=== PATIENT | female | born 1975 | race Caucasian/White ===

== ENCOUNTER → 2022-11-13 12:54 | Outpatient (CLI) | payer BC, SELFPAY ==
--- NOTE | 2022-11-13 13:00 | XR_ITS ---
FINAL REPORT CLINICAL HISTORY: Chest congestion, cough COMPARISON: None FINDINGS: PA and lateral views of the chest are obtained. There is no prior exam for comparison. The cardiac and mediastinal silhouettes are within normal limits. The lungs are clear. There is no pleural effusion, pneumothorax, or acute osseous abnormality. IMPRESSION: No radiographic evidence of acute cardiac or pulmonary disease. Reviewed, Interpreted and Dictated by Alta Reynolds MD Transcribed by Yudy Puri Authenticated and [facility]
[2022-11-13 14:24] LABS: Adenovirus,PCR Not Detected (NotDetected); Bordetella Pertussis Not Detected (NotDetected); Chlamydophila Pneumoniae, PCR Not Detected (NotDetected); Coronavirus 19, PCR Not Detected (NotDetected); Coronavirus 229E Not Detected (NotDetected); Coronavirus NL63 Not Detected (NotDetected); Coronavirus OC43 Not Detected (NotDetected); Coronovirus HKU1,PCR Not Detected (NotDetected); Human Metapneumovirus Not Detected (NotDetected); Influenza A, PCR Not Detected (NotDetected); Influenza AH1, 2009 Not Detected (NotDetected); Influenza AH1, PCR Not Detected (NotDetected); Influenza AH3,PCR Not Detected (NotDetected); Influenza B, PCR Not Detected (NotDetected); Mycoplasma Pneumoniae, PCR Not Detected (NotDetected); Parainfluenza 1, PCR Not Detected (NotDetected); Parainfluenza 2, PCR Not Detected (NotDetected); Parainfluenza 3, PCR Not Detected (NotDetected); Parainfluenza 4, PCR Not Detected (NotDetected); Respiratory Syncytial Virus Not Detected (NotDetected); Rhinovirus/Enterovirus Not Detected (NotDetected)
== END ==
PROVIDERS: PCP Internal Medicine; Visit Provider Internal Medicine
DX: J22 Unspecified acute lower respiratory infection (principal); R51.9 Headache, unspecified; R09.82 Postnasal drip; R05.9 Cough, unspecified; R19.7 Diarrhea, unspecified
CPT/HCPCS: 71046; 87581; 87632; 87798

== ENCOUNTER → 2022-12-05 16:01 | Outpatient (CLI) | payer BC, SELFPAY | PROVIDERS: PCP Internal Medicine; Visit Provider Internal Medicine | DX: R05.9 Cough, unspecified (principal); B96.89 Other specified bacterial agents as the cause of diseases classified elsewhere | CPT/HCPCS: 87070; 87205 ==

== ENCOUNTER 2023-04-25 09:30 | Outpatient (CLI) | payer MEDICARE, SELFPAY ==
--- NOTE | 2023-04-25 09:34 | XR_ITS ---
FINAL REPORT CLINICAL HISTORY: tb screening COMPARISON: 11/13/2022 FINDINGS: Two views of the chest were obtained. The heart size and pulmonary vascularity are within normal limits. The mediastinum is normal. No acute pulmonary abnormality is identified. There are several small calcified granulomas in the lungs. There is no evidence of active mycobacterial/fungal disease. There is no pneumothorax. The bony thorax is intact. IMPRESSION: No active cardiopulmonary disease. No evidence of active mycobacterial/fungal disease. Reviewed, Interpreted and Dictated by Anant Sy III, MD Transcribed by Concepcion Dutton Authenticated and . [facility]
[2023-04-25 10:14] LABS: Basophils # 0.1 K/mm3 (0-0.2); Eosinophils # 0.2 K/mm3 (0.0-0.4); Eosinophils % 2.2 % (0.1-12.0); Hematocrit 44.8 % (37.0-47.0); Hemoglobin 13.9 g/dL (12.2-16.2); Lymphocytes # 1.1 K/mm3 (0.7-4.5); Lymphocytes % 16.3 % (10-50); Mean Corpuscular Hemoglobin 31.9 pg (27.0-31.2); Mean Corpuscular Volume 102.9 fl (81-99); Mean Platelet Volume 7.1 fl (7.4-10.4); Monocytes # 0.4 K/mm3 (0.1-1.0); Monocytes % 5.3 % (1.7-9.3); Neutrophils # 5.1 K/mm3 (1.8-7.8); Neutrophils % 75.2 % (37.0-80.0); Platelet Count 284 K/mm3 (142-424); Red Blood Count 4.35 M/mm3 (4.20-5.40); Red Cell Distribution Width 13.8 % (11.5-17.5); White Blood Count 6.8 K/mm3 (4.8-10.8)
[2023-04-25 11:02] LABS: Alanine Aminotransferase 30 U/L (12-78); Albumin Level 4.6 g/dl (3.5-5.0); Albumin/Globulin Ratio 1.9 (1.1-1.8); Alkaline Phosphatase 110 U/L (38-126); Anion Gap 12.2 mEq/L (5-15); Aspartate Amino Transferase 28 U/L (14-36); Bilirubin,Total 0.4 mg/dl (0.2-1.3); Blood Urea Nitrogen 21 mg/dl (7-17); Calcium 9.3 mg/dl (8.4-10.2); Carbon Dioxide 25 mmol/L (22.0-30.0); Chloride 106 mmol/L (98-107); Chol/HDL Ratio 3.3 (1-3.5); Cholesterol 223 mg/dl (140-200); Estimated Glomerular Filt Rate 48 ml/min (>60); GFR (African American) 58 ML/MIN (>60); Globulin 2.4 g/dL (1.3-3.2); Glucose 93 mg/dl (74-100); HDL Cholesterol 67 mg/dl (40-60); Potassium 4.2 mmoL/L (3.5-5.1); Sodium 139 mmol/L (136-145); Triglycerides 76 mg/dl (30-150); VLDL Cholesterol 15 mg/dL (0-40)
[2023-04-25 11:13] LABS: Direct LDL Cholesterol 113.08 mg/dL (100-129)
[2023-04-25 11:19] LABS: Free T4 (Free Thyroxine) 1.13 ng/dl (0.78-2.19)
[2023-04-25 11:32] LABS: Thyroid Stimulating Hormone 6.18 uIU/mL (0.465-4.68)
[2023-04-26 15:51] LABS: Measles Antibodies, IgG >300.0 AU/mL (Immune >16.4); Mumps Abs, IgG 58.6 AU/mL (Immune >10.9); Rubella Antibodies, IgG 6.05 index (Immune >0.99)
[2023-04-28 12:05] LABS: Vitamin B12 813 pg/mL (239-931)
[2023-04-28 12:06] LABS: Folate 5.54 ng/mL
== END 2023-04-25 23:59 ==
LOC: LAB 09:32
PROVIDERS: PCP Internal Medicine; Visit Provider Internal Medicine
DX: Z11.1 Encounter for screening for respiratory tuberculosis; E03.9 Hypothyroidism, unspecified; Z79.899 Other long term (current) drug therapy; E66.9 Obesity, unspecified; Z02.1 Encounter for pre-employment examination; Z68.32 Body mass index [BMI] 32.0-32.9, adult
CPT/HCPCS: 36415; 71046; 80053; 80061; 82607; 82746; 84439; 84443; 85025; 86735; 86762; 86765

== ENCOUNTER 2023-05-05 17:04 | Outpatient (CLI) | payer MEDICARE, SELFPAY ==
[2023-05-05 17:33] LABS: Chloride 105 mmol/L (98-107); Potassium 4.2 mmoL/L (3.5-5.1); Sodium 140 mmol/L (136-145)
[2023-05-05 17:36] LABS: Alanine Aminotransferase 31 U/L (12-78); Albumin/Globulin Ratio 1.6 (1.1-1.8); Alkaline Phosphatase 126 U/L (38-126); Anion Gap 14.2 mEq/L (5-15); Aspartate Amino Transferase 33 U/L (14-36); Bilirubin,Total 0.5 mg/dl (0.2-1.3); Blood Urea Nitrogen 13 mg/dl (7-17); Carbon Dioxide 25 mmol/L (22.0-30.0); Estimated Glomerular Filt Rate 59 ml/min (>60); GFR (African American) 71 ML/MIN (>60); Globulin 3.2 g/dL (1.3-3.2); Glucose 91 mg/dl (74-100); Phosphorous 4.4 mg/dl (2.5-4.5); Total Protein,Serum 8.2 g/dl (6.3-8.2)
[2023-05-05 17:37] LABS: Magnesium 2.2 mg/dl (1.6-2.3)
== END 2023-05-05 23:59 ==
PROVIDERS: PCP Nurse Practitioner Family; Visit Provider Nurse Practitioner Family
DX: N17.9 Acute kidney failure, unspecified (principal); M79.18 Myalgia, other site
CPT/HCPCS: 80053; 83735; 84100

== ENCOUNTER 2023-08-01 15:19 | Emergency (ER) | payer MEDICARE, SELFPAY ==
--- NOTE | 2023-08-01 15:27 | ED_ITS ---
Discharge Plan Disposition Patient Disposition: Home, Self-Care Condition: Good Prescriptions Prescriptions: No Action levothyroxine 137 mcg tablet 137 mcg PO DAILY Qty: 90 3RF buspirone 7.5 mg tablet 7.5 mg PO BID Qty: 180 3RF desvenlafaxine succinate [Pristiq] 50 mg tablet extended release 24 hr 50 mg PO DAILY Qty: 90 3RF trazodone 50 mg tablet 100 mg PO DAILY Patient Comments: TAKE 2 TABLETS BY MOUTH AT BEDTIME NIGHTLY citalopram 20 mg tablet 20 mg PO DAILY Patient Comments: TAKE 1 TABLET BY MOUTH ONCE DAILY duloxetine 60 mg capsule,delayed release(DR/EC) 60 mg PO DAILY Patient Comments: TAKE 1 CAPSULE BY MOUTH ONCE DAILY Referrals Follow up/Referrals: Nettie Peña APRN [Primary Care Provider] - See instructions Activity Restrictions/Add. Instructions Additional Instructions/Restrictions: Watch for signs of infection Keep clean and dry Steri strips will fall off on their own Sutures need to be removed in 10 days (here or with Nettie) Clinical Impressions Clinical Impression: Laceration of left lower extremity Instructions Patient Instructions: DI for Laceration Repair -- Simple Discharge ED Provider: Tram Wilhelm 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 Onset (ago): hour(s) (1) Location: left and lower extremity Relieving factors: none Exacerbating factors: none Treatments prior to arrival: none Related Data Home Medications Medication Instructions Recorded Confirmed citalopram 20 mg tablet 20 mg PO DAILY 08/01/23 08/01/23 duloxetine 60 mg capsule,delayed 60 mg PO DAILY 08/01/23 08/01/23 release trazodone 50 mg tablet 100 mg PO DAILY 08/01/23 08/01/23 Previous Rx's Medication Instructions Recorded levothyroxine 137 mcg tablet 137 mcg PO DAILY #90 tabs 05/05/23 buspirone 7.5 mg tablet 7.5 mg PO BID #180 tabs 06/23/23 desvenlafaxine succinate 50 mg 50 mg PO DAILY #90 tabs 07/30/23 tablet,extended release 24 hr (Pristiq) Allergies Allergy/AdvReac Type Severity Reaction Status Date / Time midazolam Allergy Verified 08/01/23 16:01 [facility] Disclaimer: The information contained in this section may have been updated after the patient was seen, as this information can be updated by other users. Medical History Establishing care with new doctor, encounter for Tuberculosis screening Pre-employment examination Lower resp. tract infection Respiratory tract infection Hypothyroidism affecting , antepartum Meniscus, lateral, bucket handle tear, old Insomnia Osteoarthritis Anxiety Depression Post traumatic stress disorder (PTSD) Hypothyroidism Surgical History History of toe surgery R & L great toe fusions History of left knee surgery History of right knee joint replacement History of hysterectomy Family History Family/Other Cancer Diabetes Stroke Heart attack Social History Smoking Status: Current every day smoker alcohol intake: never substance use type: denies use current occupational status: employed Travel in the last 8 weeks: None ROS Obtained: Yes All systems reviewed & no additional complaints except as documented Musculoskeletal Musculoskeletal: Reports as per HPI Integumentary/Breasts Skin/Breast: Reports as per HPI Physical Exam General General appearance: alert and in no apparent distress Respiratory Respiratory exam: Present normal lung sounds bilaterally; Absent respiratory distress Cardiovascular Cardiovascular exam: Present regular rate and normal rhythm; Absent JVD Extremities Exam Extremities exam: Present normal inspection, full ROM and normal capillary refill; Absent calf tenderness Expanded Lower Extremity Exam Left: Leg image: 2 1. laceration Lower leg exam: Present laceration Neurological Exam Neurological exam: Present alert and oriented X3 Psychiatric Psychiatric exam: Present normal affect and normal mood Skin Skin exam: Present warm, dry, intact and normal color Lymphatic Lymphatic Findings: no adenopathy Medical Decision Making Arsen Inquiry Pt receiving controlled substance: No Procedures Laceration Laceration 1: Site: lower extremity Side (If applicable): left Size (cm): 3 Description: flap Depth: simple, single layer Local Anesthetic: lidocaine 1% Amount of anesthesia used (mL): 2.0 Pre-repair: wound explored and irrigated extensively Skin layer closed with: nylon and vicryl Size (cm): 4-0 Number of sutures: 4 Technique: simple, interrupted
[2023-08-01 15:40] VITALS: BP 124/85; PULSE 87; RESP 18; TEMP 36.6; O2SAT 98; BMI 33.5
--- NOTE | 2023-08-01 16:13 | PC.NURSE ---
Pt stated that she received a tdap in 03/2023.
[2023-08-01 16:19] VITALS: BP 124/85; PULSE 80; RESP 18; TEMP 36.6; O2SAT 98
== END 2023-08-01 16:19 | disposition home or self-care (01) ==
PROVIDERS: Emergency Provider Physician Assistant; PCP Nurse Practitioner Family
DX: S81.812A Laceration without foreign body, left lower leg, initial encounter (principal); W26.8XXA Contact with other sharp object(s), not elsewhere classified, initial encounter
CPT/HCPCS: 12002; 99204; 99213; G0463

== ENCOUNTER 2023-11-12 17:26 | Outpatient (CLI) | payer MEDICARE, SELFPAY ==
[2023-11-12 18:09] LABS: Free T4 (Free Thyroxine) 1.73 ng/dl (0.78-2.19)
[2023-11-12 18:26] LABS: Thyroid Stimulating Hormone 3.23 uIU/mL (0.465-4.68)
[2023-11-12 18:44] LABS: HIV (1&2) Antibody Rapid NONREACTIVE (NONREACTIVE)
[2023-11-14 08:33] LABS: HCV Ab Non Reactive (Non Reactive)
== END 2023-11-12 23:59 | disposition home or self-care (01) ==
LOC: LAB.DROPOF 17:26
PROVIDERS: PCP Nurse Practitioner Family; Visit Provider Nurse Practitioner Family
DX: Z11.59 Encounter for screening for other viral diseases (principal); Z11.4 Encounter for screening for human immunodeficiency virus [HIV]; E03.9 Hypothyroidism, unspecified
CPT/HCPCS: 84439; 84443; 86803; 87389

== ENCOUNTER 2024-01-20 11:00 | Outpatient (RCR) | payer MEDICARE, SELFPAY ==
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
== END 2024-01-20 23:59 | disposition home or self-care (01) ==
LOC: PT 11:00
PROVIDERS: PCP Nurse Practitioner Family; Visit Provider Physician Assistant Medical
DX: M54.50 Low back pain, unspecified (principal)
CPT/HCPCS: 97010; 97014; 97110; 97140; 97163; 97530; G0283

== ENCOUNTER 2024-04-10 08:51 | Emergency (ER) | payer MEDICARE, SELFPAY ==
[2024-04-10 08:53] VITALS: BP 129/89; PULSE 82; RESP 18; TEMP 36.6; O2SAT 99; BMI 31.6
--- NOTE | 2024-04-10 09:03 | PC.NURSE ---
DR GARCIA AT BEDSIDE
--- NOTE | 2024-04-10 09:07 | PC.NURSE ---
Pt back in room from Rad
[2024-04-10] MEDS: predniSONE 20MG TAB 60 MG PO (09:23)
--- NOTE | 2024-04-10 09:26 | ED_ITS ---
Discharge Plan Disposition Patient Disposition: Home, Self-Care Prescriptions Prescriptions: New prednisone 20 mg tablet 40 mg PO DAILY 5 Days Qty: 10 0RF No Action levothyroxine 137 mcg tablet 137 mcg PO DAILY Qty: 90 3RF Vraylar 1.5 mg capsule 1.5 mg PO QHS Qty: 90 3RF buspirone 7.5 mg tablet 7.5 mg PO BID Qty: 180 3RF desvenlafaxine succinate [Pristiq] 50 mg tablet extended release 24 hr 50 mg PO DAILY Qty: 90 3RF Referrals Follow up/Referrals: Nettie Peña APRN [Primary Care Provider] - See instructions Activity Restrictions/Add. Instructions Additional Instructions/Restrictions: Follow-up with your family doctor regarding this visit to the emergency department. Talk to them about allergy referral and formal testing. If you have any other concerning signs or symptoms including difficulty breathing, swelling of the mouth, tongue, throat, or any other concerns, return to the emergency department for further evaluation. Clinical Impressions Clinical Impression: Urticarial rash Instructions Patient Instructions: DI for Skin Abscess Print Language Print Language: Mosotho Discharge ED Provider: Dyllan Pacheco General Adult HPI General Chief complaint: Skin/Abscess/Foreign Body Stated complaint: Rash on legs and abd x 1 week Time Seen by Provider: 04/10/24 08:58 Mode of Arrival: Ambulatory Source of Information: Patient Limitations: No Limitations Description of Symptoms (Recalled from ER Triage Doc. by RN): Patient reports a rash on her stomach, legs and arms x 1 week. States that it does itch. Reports that she has changed everything hoping to get some relief and nothing working. History of Present Illness HPI narrative: Please note that above description of symptoms, in this electronic medical record under categorization of recalled from ER triage doctor by RN are reflective of an initial nursing assessment, however, is not reflective of my full history and physical exam that was personally taken and clarified. Consequentially, this preceding description of symptoms, which may include the patient's categorized chief complaint in the EMR, do not reflect my personal clinical impression, and the ultimate description of history of present illness and patient stated complaints should be deferred to this section of the note. Unless stated otherwise or congruent with this section of the note, additional signs, symptoms, or incongruence should be interpreted as inaccurate with my clinical impression. Related Data Previous Rx's ?Medication ?Instructions ?Recorded levothyroxine 137 mcg tablet 137 mcg PO DAILY #90 tabs 05/05/23 buspirone 7.5 mg tablet 7.5 mg PO BID #180 tabs 06/23/23 desvenlafaxine succinate 50 mg 50 mg PO DAILY #90 tabs 07/30/23 tablet,extended release 24 hr (Pristiq) cariprazine 1.5 mg capsule 1.5 mg PO QHS #90 caps 11/12/23 (Vraylar) prednisone 20 mg tablet 40 mg (2 x 20 mg) PO DAILY 5 days 04/10/24 #10 tabs Allergies Allergy/AdvReac Type Severity Reaction Status Date / Time midazolam Allergy Verified 11/12/23 09:41 [facility] Disclaimer: The information contained in this section may have been updated after the patient was seen, as this information can be updated by other users. Medical History (Updated 04/10/24 @ 09:23 by Dyllan Pacheco MD) JESSE (acute kidney injury) Laceration of left lower extremity Establishing care with new doctor, encounter for Tuberculosis screening Pre-employment examination Lower resp. tract infection Respiratory tract infection Hypothyroidism affecting , antepartum Meniscus, lateral, bucket handle tear, old Insomnia Osteoarthritis Anxiety Depression Post traumatic stress disorder (PTSD) Hypothyroidism Surgical History History of toe surgery History of left knee surgery History of right knee joint replacement History of hysterectomy Family History Family/Other Cancer Diabetes Stroke Heart attack Social History Smoking Status: Current every day smoker alcohol intake: never substance use type: denies use current occupational status: employed Travel in the last 8 weeks: None Have you lived/traveled outside [place] in past 30 days?: No Contact w/someone who lives/traveled outside US past 30 days?: No Exposure to someone with infectious disease in past 14 days?: No Do you have a fever (greater than 100.4 F or 38 C)?: No Have you tested positive for COVID-19: No Exposed to someone with COVID-19 in past 14 days?: No Do you have a sore throat?: No Do you have a cough?: No Do you have any weakness?: No Do you have any diarrhea?: No Are you experiencing any unusual bleeding?: No Do you have any muscle aches/pain?: No Do you have any abdominal pain?: No Are you experiencing loss of taste or smell?: No Other Medical History Have you received the Pneumonia Vaccine: Yes ROS Obtained: Yes All systems reviewed & no additional complaints except as documented Physical Exam General General appearance: alert Head Head exam: atraumatic and normocephalic Eye Eye exam: Present normal appearance, PERRL and EOMI Neck Neck exam: Present normal inspection, full ROM and trachea midline Respiratory Respiratory exam: Absent respiratory distress, wheezes, stridor, accessory muscle use or prolonged expiratory phase Cardiovascular Cardiovascular exam: Present other (Pulses equal symmetric in upper and lower extremities) Abdominal Exam Abdominal exam: Present soft; Absent distention, tenderness or pulsatile mass Extremities Exam Extremities exam: Absent edema Neurological Exam Neurological exam: Present alert, oriented X3 and CN II-XII intact; Absent motor sensory deficit Skin Skin exam: Present warm, dry, rash and erythema; Absent diaphoresis Medical Decision Making Medical Records Medical records reviewed: Yes I reviewed the patient's medical records. Screening: Per USPSTF and CDC recommendations, given the prevalence of disease in our region, it is our hospital?s policy to screen for HIV and viral Hepatitis for all patients aged 18 and over and those with ongoing risk factors. Arsen Inquiry Pt receiving controlled substance: No Arsen was queried for this patient: No Vital Signs: 04/10/24 08:53 Temperature 97.9 F Temperature Source Oral Pulse Rate [Radial] 82 Respiratory Rate 18 Blood Pressure [Right Arm] 129/89 Blood Pressure Mean [Right Arm] 102 Blood Pressure Source [Right Arm] Automatic Cuff Blood Pressure Position [Right Arm] Sitting 02 Sat by Pulse Oximetry 99 Oxygen Delivery Method Room Air Orders (Tests/Meds): ED MEDICATIONS Discontinued Medications Generic Name Dose Route Start Last Admin Trade Name Freq PRN Reason Stop Dose Admin Prednisone 60 mg 04/10/24 09:20 04/10/24 09:23 Prednisone 20mg Tab PO 04/10/24 09:21 60 mg ONCE ONE Administration Medical Decision Narrative: 48-year-old female presenting with urticarial rash. This been going on for about a week. She says that she started a new job about a month ago and rash developed since that time, no other environmental exposures prior. Since the rash started, however, she has changed her detergents, laundry, soaps, clothing, wash her sheets, etc. Change essentially everything around the house. States that the rash is bad throughout the day, but worse when she lays down at night under covers when everything is warm. No shortness of breath, cough, chest pain, mucosal lesions, visual changes, eye discomfort, or any other concerns. Has been taking oral antihistamines as well as topical antihistamines and topical steroids, minimal relief. Came in for further evaluation. On my evaluation, patient very well-appearing and nontoxic. No evidence of ocular involvement, no oral lesions, she does have scattered diffuse urticaria on trunk as well as extremities. This is consistent with urticarial rash. Because rash started after inception of new job, but prior to exposure changes, I feel this is most likely consistent with something she is exposed to at work. 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 Because it is on nearly entire body surface area and scattered patches, but patient wears full body protective and other than respiratory protection, I feel this is likely something she is inhaling. Recommended she follow-up with her family doctor for formal allergy referral and testing. Steroid given here, rest of steroid sent for home-going. Close return precautions were discussed. Hematologic workup was considered, but patient having no systemic signs or symptoms, very clinically well and no red flag signs or symptoms. Not deemed necessary at this time. Because patient at baseline without signs or symptoms of clinical decompensation, deemed appropriate for discharge. I discussed my clinical impression with patient and answered all questions. At this time, the evidence for any other entities in the differential is insufficient to warrant any further testing or ED observation. This was explained as well. Advisory was given that persistent or worsening symptoms require further evaluation. I confirmed the understanding of this discussion. Operating Room Aide disclaimer Much of this encounter note is an electronic woodworking machine operator spoken language to printed text. Electronic woodworking machine operator of the spoken language may permit errors. Although I have reviewed the note, some errors may still exist. Critical Care Critical Care Time Critical Care Time: No
[2024-04-10 09:31] VITALS: BP 128/85; PULSE 80; RESP 18; TEMP 36.6; O2SAT 98
== END 2024-04-10 09:32 | disposition home or self-care (01) ==
PROVIDERS: Emergency Provider Emergency Medicine; PCP Nurse Practitioner Family
DX: L50.9 Urticaria, unspecified (principal); R21 Rash and other nonspecific skin eruption; Z72.0 Tobacco use
CPT/HCPCS: 99283

== ENCOUNTER 2024-04-12 08:23 | Emergency (ER) | payer MEDICARE, SELFPAY ==
[2024-04-12] VITALS (12 sets, daily range): BP systolic 107–130; BP diastolic 65–91; PULSE 66–86; RESP 12–20; TEMP 36.6–36.7; O2SAT 94–99; BMI 30.7
--- NOTE | 2024-04-12 08:58 | XR_ITS ---
FINAL REPORT CLINICAL HISTORY: Syncope, smoker x many years , rash COMPARISON: 04/25/2023 FINDINGS: No acute pulmonary opacity is present. There is no evidence of effusion or pneumothorax. Mediastinum is unremarkable. Heart size is normal. IMPRESSION: No acute abnormality. Reviewed, Interpreted and Dictated by Marie Zeng MD Transcribed by Yudy Puri Authenticated and [facility]
--- NOTE | 2024-04-12 09:08 | HMH.EDGENADL ---
Discharge Plan Disposition Patient Disposition: Home, Self-Care Prescriptions Prescriptions: No Action levothyroxine 137 mcg tablet 137 mcg PO DAILY Qty: 90 3RF Vraylar 1.5 mg capsule 1.5 mg PO QHS Qty: 90 3RF buspirone 7.5 mg tablet 7.5 mg PO BID Qty: 180 3RF desvenlafaxine succinate [Pristiq] 50 mg tablet extended release 24 hr 50 mg PO DAILY Qty: 90 3RF prednisone 20 mg tablet 40 mg PO DAILY 5 Days Qty: 10 0RF Referrals Follow up/Referrals: Naveed Zheng MD [Staff Physician] - See instructions (Syncope, would like close follow up) Nettie Peña APRN [Primary Care Provider] - See instructions Activity Restrictions/Add. Instructions Additional Instructions/Restrictions: You are being referred to Cardiology. I would like you to call this number ([phone]) at your earliest convenience to set up an appointment for follow-up. If you develop any new or worsening symptoms, such as additional episodes of passing out, worsening rash, shortness of breath, or if you become concerned for your health for any reason, return to the emergency department for evaluation. Continue to take your prednisone until completion and follow-up with your primary care physician once it is completed. Clinical Impressions Clinical Impression: Syncope, Rash Instructions Patient Instructions: DI for Skin Abscess Print Language Print Language: Albanian Discharge ED Provider: Juan Machado Adult HPI General Chief complaint: Skin/Abscess/Foreign Body Stated complaint: rash dizziness passing out sent by [facility] Time Seen by Provider: 04/12/24 08:39 Mode of Arrival: Ambulatory Source of Information: Patient Limitations: No Limitations Description of Symptoms (Recalled from ER Triage Doc. by RN): PT STATED THAT SHE WAS HERE ON FRIDAY FOR A RASH D/C'D WITH PREDNISONE. PT STATES RASH IS PERSISTING ON LEGS ARMS AND CHEST. FEELS WEAK. HAS FALLEN X2. REPORTS THAT SHE DOES NOT THIS THAT SHE HIT HER HEAD. REPORTS IN NO PAIN AT THIS TIME History of Present Illness HPI narrative: Sherry Phillip is a 48-year-old female with no significant past medical history who presents to the emergency department for 2 episodes of passing out as well as a rash. Patient states that she developed an itchy rash to both legs, chest and abdomen 2 days ago and was seen in the emergency department that time. She was discharged on a 5-day course of steroids, which she has been taking. In addition to this, she has been taking loratadine at home but states that the rash has not improved. She states that today, she was standing and making coffee when she suddenly passed out. She did not feel this episode coming on. She does not know how long she had passed out but does not believe she hit her head. She woke up in a cold sweat. She states that she passed out 1 more time after this but did not hit her head at that time. She was able to take a bath and then went to her primary care physician who sent her here for further workup. She denies any chest pain, heart palpitations, dizziness, shortness of breath, headache, vision changes. She does report that she still has an itchy rash but has no other complaints or concerns at this time. She does note that since her rash initially appeared, she has changed all of her soaps and detergents to see if that was the issue. 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 Related Data Previous Rx's ?Medication ?Instructions ?Recorded levothyroxine 137 mcg tablet 137 mcg PO DAILY #90 tabs 05/05/23 buspirone 7.5 mg tablet 7.5 mg PO BID #180 tabs 06/23/23 desvenlafaxine succinate 50 mg 50 mg PO DAILY #90 tabs 07/30/23 tablet,extended release 24 hr (Pristiq) cariprazine 1.5 mg capsule 1.5 mg PO QHS #90 caps 11/12/23 (Vraylar) prednisone 20 mg tablet 40 mg (2 x 20 mg) PO DAILY 5 days 04/10/24 #10 tabs Allergies Allergy/AdvReac Type Severity Reaction Status Date / Time midazolam Allergy Verified 11/12/23 09:41 [facility] Disclaimer: The information contained in this section may have been updated after the patient was seen, as this information can be updated by other users. Medical History (Updated 04/12/24 @ 11:55 by Juan Machado MD) JESSE (acute kidney injury) Laceration of left lower extremity Establishing care with new doctor, encounter for Tuberculosis screening Pre-employment examination Lower resp. tract infection Respiratory tract infection Hypothyroidism affecting , antepartum Meniscus, lateral, bucket handle tear, old Insomnia Osteoarthritis Anxiety Depression Post traumatic stress disorder (PTSD) Hypothyroidism Surgical History History of toe surgery History of left knee surgery History of right knee joint replacement History of hysterectomy Family History Family/Other Cancer Diabetes Stroke Heart attack Social History Smoking Status: Current every day smoker alcohol intake: never substance use type: denies use current occupational status: employed Travel in the last 8 weeks: None Have you lived/traveled outside US in past 30 days?: No Contact w/someone who lives/traveled outside US past 30 days?: No Exposure to someone with infectious disease in past 14 days?: No Do you have a fever (greater than 100.4 F or 38 C)?: No Have you tested positive for COVID-19: No Exposed to someone with COVID-19 in past 14 days?: No Do you have a sore throat?: No Do you have a cough?: No Do you have any weakness?: No Do you have any diarrhea?: No Are you experiencing any unusual bleeding?: No Do you have any muscle aches/pain?: No Do you have any abdominal pain?: No Are you experiencing loss of taste or smell?: No Other Medical History Have you received the Pneumonia Vaccine: Yes ROS Obtained: Yes Systems reviewed as appropriate & no additional complaints except as documented Physical Exam General General appearance: alert and in no apparent distress Head Head exam: atraumatic Eye Eye exam: Present normal appearance ENT ENT exam: Present normal external ear exam Neck Neck exam: Present full ROM Chest Chest inspection: Present symmetric chest wall rise Respiratory Respiratory exam: Present normal lung sounds bilaterally; Absent respiratory distress Cardiovascular Cardiovascular exam: Present regular rate and normal rhythm Abdominal Exam Abdominal exam: Present soft; Absent tenderness or guarding Extremities Exam Extremities exam: Present normal inspection Back Exam Back exam: Present normal inspection Neurological Exam Neurological exam: Present alert and oriented X3 Psychiatric Psychiatric exam: Present normal affect Skin Skin exam: Present warm, dry and rash (Faint scattered erythema throughout the medial aspect of both thighs, chest and abdomen) Medical Decision Making Medical Records Screening: Per USPSTF and CDC recommendations, given the prevalence of disease in our region, it is our hospital?s policy to screen for HIV and viral Hepatitis for all patients aged 18 and over and those with ongoing risk factors. Arsen Inquiry Pt receiving controlled substance: No Vital Signs: 04/12/24 08:32 04/12/24 08:34 04/12/24 09:00 Temperature 97.9 F 97.9 F Temperature Source Oral Oral Pulse Rate 86 74 Pulse Rate [Orthostatic Lying] Pulse Rate [Orthostatic Sitting] Pulse Rate [Orthostatic Standing] Pulse Rate [Right Radial] 84 Respiratory Rate 18 18 Blood Pressure 124/76 107/72 L Blood Pressure [Orthostatic Lying Right Arm] Blood Pressure [Orthostatic Sitting Right Arm] Blood Pressure [Orthostatic Standing Right Arm] Blood Pressure [Right Arm] 124/76 Blood Pressure Mean 82 87 Blood Pressure Mean [Right Arm] 92 Blood Pressure Source [Right Arm] Automatic Cuff Blood Pressure Position [Right Arm] Sitting 02 Sat by Pulse Oximetry 98 98 98 Oxygen Delivery Method Room Air 04/12/24 09:24 04/12/24 09:25 04/12/24 09:32 Temperature Temperature Source Pulse Rate 82 76 71 Pulse Rate [Orthostatic Lying] Pulse Rate [Orthostatic Sitting] Pulse Rate [Orthostatic Standing] Pulse Rate [Right Radial] Respiratory Rate Blood Pressure 108/69 L 117/75 112/73 Blood Pressure [Orthostatic Lying Right Arm] Blood Pressure [Orthostatic Sitting Right Arm] Blood Pressure [Orthostatic Standing Right Arm] Blood Pressure [Right Arm] Blood Pressure Mean Blood Pressure Mean [Right Arm] Blood Pressure Source [Right Arm] Blood Pressure Position [Right Arm] 02 Sat by Pulse Oximetry 94 L 97 99 Oxygen Delivery Method Room Air Room Air Room Air 04/12/24 09:45 04/12/24 09:49 04/12/24 10:15 Temperature Temperature Source Pulse Rate 71 66 Pulse Rate [Orthostatic Lying] 69 Pulse Rate [Orthostatic Sitting] 74 Pulse Rate [Orthostatic Standing] 77 Pulse Rate [Right Radial] Respiratory Rate Blood Pressure 109/79 L 130/71 Blood Pressure [Orthostatic Lying Right Arm] 108/69 L Blood Pressure [Orthostatic Sitting Right Arm] 117/75 Blood Pressure [Orthostatic Standing Right Arm] 112/73 Blood Pressure [Right Arm] Blood Pressure Mean Blood Pressure Mean [Right Arm] Blood Pressure Source [Right Arm] Blood Pressure Position [Right Arm] 02 Sat by Pulse Oximetry 95 97 Oxygen Delivery Method Room Air Room Air 02/24/25 10:31 04/12/24 11:01 04/12/24 12:05 Temperature 98.0 F Temperature Source Pulse Rate 66 Pulse Rate [Orthostatic Lying] Pulse Rate [Orthostatic Sitting] Pulse Rate [Orthostatic Standing] Pulse Rate [Right Radial] Respiratory Rate 15 20 12 Blood Pressure 127/91 H 125/82 114/65 Blood Pressure [Orthostatic Lying Right Arm] Blood Pressure [Orthostatic Sitting Right Arm] Blood Pressure [Orthostatic Standing Right Arm] Blood Pressure [Right Arm] Blood Pressure Mean 97 96 Blood Pressure Mean [Right Arm] Blood Pressure Source [Right Arm] Blood Pressure Position [Right Arm] 02 Sat by Pulse Oximetry Oxygen Delivery Method Room Air Lab Data Lab Results 04/12/24 09:10: WBC 10.1, RBC 4.89, Hgb 15.4, Hct 46.7, MCV 95.5, MCH 31.5 H, MCHC 33.0, RDW 13.5, Plt Count 294, MPV 8.8, Neut % (Auto) 93.3 H, Lymph % (Auto) 5.4 L, [place] % (Auto) 0.8 L, Eos % (Auto) 0.0 L, Baso % (Auto) 0.1, Neut # (Auto) 9.4 H, Lymph # (Auto) 0.5 L, [place] # (Auto) 0.1, Eos # (Auto) 0.0, Baso # (Auto) 0.0, Total Counted 100, Neutrophils % (Manual) 96 H, Lymphocytes % (Manual) 4 L, Platelet Estimate Normal, RBC Morphology Normal, ESR 1, D-Dimer 2.77 H, Sodium 137, Potassium 4.1, Chloride 104, Carbon Dioxide 26, Anion Gap 11.1, BUN 17, Creatinine 1.00, Estimated Creat Clear 92, Estimated GFR 59, Est GFR ( Amer) 71, Glucose 219 H, Calcium 9.1, Total Bilirubin 0.3, AST 28, ALT 33, Alkaline Phosphatase 94, Troponin I < 0.01, C-Reactive Protein 3.0, Total Protein 7.4, Albumin 4.5, Globulin 2.9, Albumin/Globulin Ratio 1.6, TSH 3.22, Free T4 1.33 04/12/24 09:45: Urine Color Yellow, Urine Appearance Clear, Urine pH 7.0, Ur Specific [place] 1.015, Urine Protein Negative, Urine Glucose (UA) Negative, Urine Ketones Negative, Urine Blood Negative, Urine Nitrate Negative, Urine Bilirubin Negative, Urine Urobilinogen 0.2, Ur Leukocyte Esterase Negative, Urine RBC None, Urine WBC 5-10, Ur Squamous Epith Cells 3-5, Urine Bacteria Trace, Urine HCG, Qual Negative 04/12/24 09:10 04/12/24 09:10 Orders (Tests/Meds): ED MEDICATIONS Discontinued Medications Generic Name Dose Route Start Last Admin Trade Name Freq PRN Reason Stop Dose Admin Lactated Ringer's 1,000 mls @ 999 mls/hr 04/12/24 09:15 04/12/24 09:14 Lactated Ringer's 1000 Ml Bag IV 04/12/24 10:15 999 mls/hr .[id number] YESSICA Administration Iopamidol 70 ml 04/12/24 09:51 04/12/24 09:56 Iopamidol-370 (76%);100ml Bottle IV 04/12/24 09:52 70 ml ONCE ONE Administration Sodium Chloride 50 ml 04/12/24 09:51 04/12/24 09:55 0.9 % Sodium Chloride 50 Ml Vial IV 04/12/24 09:52 50 ml ONCE ONE Administration Sodium Chloride 10 ml 04/12/24 09:51 04/12/24 09:56 Sodium Chloride 0.9% 10ml Syr (Rad Only) IV 04/12/24 09:52 10 ml ONCE ONE Administration ORDERS Category Date Time Status CT angio chest PE protocol Stat Cat Scan 04/12/24 09:38 Completed CXR --portable [XR chest portable] Stat Exams 04/12/24 08:58 Completed POCUS Point of Care (ER Only) Stat Exams 04/12/24 10:41 Completed CBC w/Auto Diff [Complete Blood Count Auto Diff] Stat Lab 04/12/24 09:10 Completed CMP [Comprehensive Metabolic Panel] Stat Lab 04/12/24 09:10 Completed CRP [C-Reactive Protein] Stat Lab 04/12/24 09:10 Completed D-Dimer Stat Lab 04/12/24 09:10 Completed ESR [Erythrocyte Sedimentation Rate] Stat Lab 04/12/24 09:10 Completed Free T4 (Free Thyroxine) Stat Lab 04/12/24 09:10 Completed TSH [Thyroid Stimulating Hormone] Stat Lab 04/12/24 09:10 Completed Troponin I Stat Lab 04/12/24 09:10 Completed UA [Urinalysis and Microscopic] Stat Lab 04/12/24 09:45 Completed Urine , HCG Qual. Stat Lab 04/12/24 09:45 Completed Medical Decision Narrative: Mrs. Sherry Phillip, 48-year-old female with no significant past medical history who presents to the emergency department for rash and 2 episodes of passing out today. She states that she developed a rash on Friday and was seen in the emergency department at that time and was discharged with prednisone. She states that she is on day 3 of treatment and feels like her rash has not got much better. She does report some itchiness that she has been treated with loratadine. Today, she stated that she had an episode of passing out while fixing her coffee. She does not know how long she was unconscious for. She had another short episode of passing out after this. She went to her primary care physician who sent her here for evaluation. On arrival, patient is normotensive, heart rate within normal limits, breathing comfortably on room air with oxygen saturation in upper 90s, afebrile. Physical exam, stated above, revealed an overall well-appearing female in no distress. She is ambulatory without difficulty. Cardiopulmonary exam is unremarkable with no murmurs, gallops or rubs. No wheezing, rales or rhonchi. Abdomen is soft, nontender nondistended. She does have a faint scattered erythematous rash that is not raised to the bilateral medial thighs, abdomen and chest. This appears urticarial in nature, however difficult to delineate based on how fainted is. Differential diagnosis includes, but is not limited to: Cardiac arrhythmia, electrolyte derangement, long QT syndrome, orthostatic syncope, vasovagal syncope, urticaria, erythema multiforme, other viral exanthem, contact dermatitis, among others. Patient's workup in the emergency department included CBC with differential, D-dimer, ESR, CMP, troponin, TSH/free T4, urinalysis, chest x-ray, EKG, bedside [id number] cardiac ultrasound EKG interpreted by me personally and showed normal sinus rhythm without ST elevation or depression or AV williams blockade or significant prolongation of the QT interval. Orthostatic vital signs unremarkable. Labs and urine grossly unremarkable nonactionable, however the patient's D-dimer is elevated. To rule out pulmonary embolism as a source of her syncope, will obtain CT pulmonary embolism. This was interpreted by me personally. No evidence of pulmonary embolism, pneumonia or aortic dissection. See radiology report for details. Bedside [id number] ultrasound performed by me personally also demonstrated roughly normal left ventricular ejection fraction, no right ventricular dilation, no pericardial effusion grossly unremarkable bedside echocardiogram. Patient's chest x-ray was also interpreted by me personally demonstrated no acute intrathoracic findings. Patient was encouraged to continue her prednisone treatment until completion to determine if her rash was truly was not responsive to the steroids. She was also encouraged to follow with her primary care physician as soon as she does complete the course of steroids if the rash does not resolve completely. If this is the case, she may need an appointment with an washroom attendant. She is also being referred to cardiology given her syncopal episodes patient may need a Holter monitor in the future. Workup today is grossly unremarkable for any acute pathology. She was given strict return precautions. All questions were answered. She demonstrated understanding and was in agreement with this plan. She was then discharged from the emergency department in stable condition Critical Care Critical Care Time Critical Care Time: No
[2024-04-12] MEDS: LACTATED RINGERS 1000ML 1,000 ML 999 ML IV (09:14)
[2024-04-12 09:15] LABS: Basophils % 0.1 % (0.1-2.0); Hematocrit 46.7 % (37.0-47.0); Hemoglobin 15.4 g/dL (12.2-16.2); Lymphocytes # 0.5 K/mm3 (0.7-4.5); Lymphocytes % 5.4 % (10-50); Mean Corpuscular Hemoglobin 31.5 pg (27.0-31.2); Mean Corpuscular Volume 95.5 fl (81-99); Mean Platelet Volume 8.8 fl (7.4-10.4); Monocytes # 0.1 K/mm3 (0.1-1.0); Monocytes % 0.8 % (1.7-9.3); Neutrophils # 9.4 K/mm3 (1.8-7.8); Neutrophils % 93.3 % (37.0-80.0); Platelet Count 294 K/mm3 (142-424); Red Blood Count 4.89 M/mm3 (4.20-5.40); Red Cell Distribution Width 13.5 % (11.5-17.5); White Blood Count 10.1 K/mm3 (4.8-10.8)
[2024-04-12 09:21] LABS: Albumin Level 4.5 g/dl (3.5-5.0); Chloride 104 mmol/L (98-107); Potassium 4.1 mmoL/L (3.5-5.1); Sodium 137 mmol/L (136-145)
[2024-04-12 09:22] LABS: MANUAL DIFFERENTIAL MANUAL DIFFERENTIAL (MANUAL DIFF)
[2024-04-12 09:24] LABS: Alanine Aminotransferase 33 U/L (12-78); Albumin/Globulin Ratio 1.6 (1.1-1.8); Alkaline Phosphatase 94 U/L (38-126); Anion Gap 11.1 mEq/L (5-15); Aspartate Amino Transferase 28 U/L (14-36); Bilirubin,Total 0.3 mg/dl (0.2-1.3); Blood Urea Nitrogen 17 mg/dl (7-17); Calcium 9.1 mg/dl (8.4-10.2); Carbon Dioxide 26 mmol/L (22.0-30.0); Creatinine Clearance Estimated 92 mL/min (50-200); Estimated Glomerular Filt Rate 59 ml/min (>60); GFR (African American) 71 ML/MIN (>60); Globulin 2.9 g/dL (1.3-3.2); Glucose 219 mg/dl (74-100); Total Protein,Serum 7.4 g/dl (6.3-8.2)
[2024-04-12 09:29] LABS: D-Dimer 2.77 ug/mL (0.0-0.5)
--- NOTE | 2024-04-12 09:35 | PC.NURSE ---
Rounded on Pt to see if they had any needs. No needs at this time
--- NOTE | 2024-04-12 09:38 | CT_ITS ---
FINAL REPORT TECHNIQUE: Thin section axial CT with contrast with multiplanar reconstruction This study was performed with techniques to keep radiation doses as low as reasonably achievable, (ALARA). Individualized dose reduction techniques using automated exposure control or adjustment of mA and/or kV according to the patient's size were employed. CLINICAL HISTORY: Syncope, elevated D-dimer COMPARISON: None FINDINGS: Pulmonary vessels enhance in normal fashion without evidence of embolism. Thoracic aorta shows no dissection or aneurysm. No pulmonary mass or infiltrate is present. No acute process is identified in the chest. There is no significant pleural effusion. There is no significant pericardial effusion. No mediastinal or hilar adenopathy is present. There is bilateral adrenal enlargement, likely adrenal hyperplasia. IMPRESSION: No evidence of pulmonary embolism, or aortic dissection. Reviewed, Interpreted and Dictated by Marie Zeng MD Transcribed by Yudy Puri Authenticated and [facility]
[2024-04-12 09:39] LABS: Troponin I < 0.01 ng/ml (0.00-0.034)
[2024-04-12 09:48] LABS: Microscopic, Urine URINE MICROSCOPIC (MICROSCOPIC)
[2024-04-12 09:52] LABS: Erythrocyte Sedimentation Rate 1 mm/hr (0-20)
[2024-04-12] MEDS: 0.9 % SODIUM CHLORIDE 50 ML VIAL IV (09:55)
[2024-04-12 09:56] LABS: Urine Pregnancy, HCG Qual. Negative (Negative)
[2024-04-12] MEDS: IOPAMIDOL-370 (76%);100ML BOTTLE 70 ML IV (09:56)
[2024-04-12] MEDS: SODIUM CHLORIDE 0.9% 10ML SYR (RAD ONLY) 10 ML IV (09:56)
[2024-04-12 09:57] LABS: Thyroid Stimulating Hormone 3.22 uIU/mL (0.465-4.68)
[2024-04-12 09:58] LABS: Free T4 (Free Thyroxine) 1.33 ng/dl (0.78-2.19)
[2024-04-12 10:12] LABS: Bacteria,Urine Trace /lpf
[2024-04-12 10:18] LABS: Appearance,Urine CLEAR (Clear); Bilirubin,Urine Negative (Negative); Blood, Urine Negative (Negative); Color,Urine YELLOW (Yellow); Glucose,Urine (UA) Negative (Negative); Ketones,Urine Negative (Negative); Leukocyte Esterase,Urine Negative (Negative); Nitrate,Urine Negative (Negative); Protein,Urine Negative (Negative); Specific Gravity, Urine 1.015 (1.005-1.030); Urobilinogen,Urine 0.2 EU/dl (0.2)
[2024-04-12 10:28] LABS: Lymphocytes % 4 % (10-50); Neutrophils % 96 % (42-76); Total Cells Counted 100
[2024-04-12 10:29] LABS: Platelet Estimate Normal; RBC Morphology Normal
== END 2024-04-12 12:06 | disposition home or self-care (01) ==
PROVIDERS: Emergency Provider Student in an Organized Health Care Education/Training Program; PCP Nurse Practitioner Family
DX: R55 Syncope and collapse (principal); R21 Rash and other nonspecific skin eruption; R53.1 Weakness; Z72.0 Tobacco use
CPT/HCPCS: 71045; 71275; 80053; 81001; 81025; 84439; 84443; 84484; 85007; 85025; 85027; 85378; 85651; 86140; 96360; 99285; J7120; Q9967

== ENCOUNTER 2024-04-19 13:58 | Outpatient (CLI) | payer MEDICARE, SELFPAY ==
[2024-04-19 18:38] LABS: Hemoglobin A1C 5.5 % (4.0-6.0)
[2024-04-25 13:13] LABS: F001-IgE Egg White 0.14 kU/L (Class 0/I); F002-IgE Milk <0.10 kU/L (Class 0); F003-IgE Codfish <0.10 kU/L (Class 0); F004-IgE Wheat 0.15 kU/L (Class 0/I); F010-IgE Sesame Seed <0.10 kU/L (Class 0); F013-IgE Peanut <0.10 kU/L (Class 0); F014-IgE Soybean <0.10 kU/L (Class 0); F024-IgE Shrimp <0.10 kU/L (Class 0); F026-IgE Pork < 0.10 kU/L (Class 0); F027-IgE Beef < 0.10 kU/L (Class 0); F088-IgE Lamb < 0.10 kU/L (Class 0); F256-IgE Walnut <0.10 kU/L (Class 0); F338-IgE Scallop <0.10 kU/L (Class 0); Immunoglobulin E, Total 16 IU/mL (6-495); O215-IgE Alpha-Gal < 0.10 kU/L (Class 0)
== END 2024-04-19 23:59 | disposition home or self-care (01) ==
LOC: RT 13:59
PROVIDERS: PCP Nurse Practitioner Family; Visit Provider Physician Assistant
DX: L50.9 Urticaria, unspecified (principal); R73.01 Impaired fasting glucose; R94.31 Abnormal electrocardiogram [ECG] [EKG]
CPT/HCPCS: 82785; 83036; 86003; 86008; 93225; 93227

== ENCOUNTER 2024-04-22 13:43 | Outpatient (CLI) | payer MEDICARE, SELFPAY | END 2024-04-22 23:59 | disposition home or self-care (01) | LOC: RT 13:44 | PROVIDERS: PCP Nurse Practitioner Family; Visit Provider Nurse Practitioner | DX: R00.0 Tachycardia, unspecified (principal); R94.31 Abnormal electrocardiogram [ECG] [EKG]; R55 Syncope and collapse | CPT/HCPCS: 93270 ==

== ENCOUNTER 2024-05-18 11:18 | Outpatient (CLI) | payer MEDICARE, SELFPAY ==
--- NOTE | 2024-05-18 11:30 | CA_ITS ---
APPROVED REPORT Exam: Exercise Treadmill Technologist: Lynn Stone Ht: 5 ft 5 in Wt: 202 lbs BSA: 1.99 m2 HR: 78 bpm BP: 128/80 mmHg Stress Test Details Test: Exercise stress testing was performed using a Ludwin protocol. HR Resting HR: 78 bpm Max Heart Rate (APMHR): 170 bpm Max HR Achieved: 148 bpm Target HR (85% APMHR): 145 bpm % of APMHR: 87 Recovery HR: 102 bpm HR response to stress: Normal HR response to stress BP Resting BP: 128.0/80.0 mmHg Max BP: 140.0/86.0 mmHg Recovery BP: 135.0/65.0 mmHg BP response to stress: Normal blood pressure response to stress. ECG Resting ECG: Sinus rhythm Clinical Exercise duration: 6:10 min Exercise capacity: 7.1 METs Stress ECG Conclusion Symptoms: Heart racing, fatigue, dyspnea Arrhythmias/Ectopy: None ST-T Changes: <0.[address] depression. Conclusion: Average exercise capacity. Normal EKG response to exercise. Electronically signed by : Lori Gonzalez MD 05/18/2024 14:20:21
--- NOTE | 2024-05-18 15:00 | CA_ITS ---
APPROVED REPORT EXAM: Comprehensive 2D, Doppler, and color-flow Echocardiogram Wheel Molder: Marie Adams RVT Ht: 5 ft 5 in Wt: 202lbs BSA: 1.99 BP: 106/72 mmHg Indications: ABN EKG,SYNCOPE,TACHYCARDIA,SMOKER 2D Dimensions LA Volume 31.80 mL LA Volume Index 15.98 mL/m2 (M/F) 16-34 M-Mode Dimensions RVDd 2.57 cm (0.9-2.6) LA Diam 3.20 cm (1.9-4.0) LVDd 4.33 cm (3.5-5.7) LVDs 2.72 cm (3.5-5.7) IVSd 1.07 cm (0.6-1.1) PWd 0.72 cm (0.6-1.1) EF (Teich) 67.40% FS 37.20% EDV (Teich) 84.40 mL TAPSE 2.40 (<1.7) ESV (Teich) 27.50 mL LV Diastology E Decel Time 180 (160-240 msec) E/A Ratio 1.0 Aortic Valve PIO Index 1.45 cm2/m2 AoV Peak Shaun. 113.0 (50-130 cm/s) AO Peak GR. 5.10 mmHg AO Mean GR. 3.20 (<5 mmHg) AO VTI 21.8 (18-25 cm) PIO (VTI) 2.94 (2.5-4.5 cm2) Mitral Valve MV E Max Shaun. 62.0 (40-130 cm/s) MV A Velocity 64.0 (40-130 cm/s) E/A Ratio 0.97 MV PHT 53.0 ms Pulmonary Valve PV Peak Velocity 73.0 (50-150 cm/s) Tricuspid Valve TR P. Velocity 157.00 cm/s RAP Estimate 10.00 mmHg RVSP 19.90 mmHg Left Ventricle The left ventricle is normal size. There is increased LV wall thickness. The left ventricular systolic function is normal. The left ventricular ejection fraction is within the normal range. There is normal LV segmental wall motion. The left ventricular diastolic function is normal. LVEF is 60%. Right Ventricle The right ventricle is normal size. The right ventricular systolic function is normal. Atria The left atrium size is normal. The right atrium size is normal. There is no Doppler evidence of interatrial shunt. Aortic Valve The aortic valve is mildly thickened. There is no aortic valvular stenosis. No aortic regurgitation is present. Mitral Valve The mitral valve is normal in structure. No evidence of mitral valve stenosis. Trace mitral regurgitation. Tricuspid Valve Tricuspid valve is grossly normal in structure and function. Trace tricuspid regurgitation. There is insufficient TR jet to estimate RVSP. Trace pulmonic regurgitation. Pulmonic Valve The pulmonary valve is normal in structure. Great Vessels The aortic root is normal in size. IVC is normal in size and collapses >50% with inspiration. Pericardium There is no pericardial effusion. Other Information Study Quality: Fair Conclusion Normal biventricular systolic function. No significant valvular stenosis or regurgitation. Electronically signed by : Lori Gonzalez MD 05/24/2024 13:07:22
== END 2024-05-18 23:59 | disposition home or self-care (01) ==
PROVIDERS: PCP Nurse Practitioner Family; Visit Provider Physician Assistant
DX: R00.0 Tachycardia, unspecified (principal); R94.31 Abnormal electrocardiogram [ECG] [EKG]; R55 Syncope and collapse
CPT/HCPCS: 93017; 93018; 93306

== ENCOUNTER 2024-06-28 07:57 | Outpatient (CLI) | payer MEDICARE, SELFPAY ==
[2024-06-28 08:03] VITALS: BMI 34.2
[2024-06-28 08:08] VITALS: BP 121/65; PULSE 68; RESP 17; TEMP 36.6; O2SAT 97
[2024-06-28 09:17] LABS: Anion Gap 6.5 mEq/L (5-15); Blood Urea Nitrogen 19 mg/dl (7-17); Carbon Dioxide 25 mmol/L (22.0-30.0); Chloride 110 mmol/L (98-107); Creatinine Clearance Estimated 109 mL/min (50-200); Estimated Glomerular Filt Rate 66 ml/min (>60); GFR (African American) 80 ML/MIN (>60); Glucose 88 mg/dl (74-100); Potassium 4.5 mmoL/L (3.5-5.1); Sodium 137 mmol/L (136-145)
[2024-06-28 09:45] VITALS: BP 109/76; PULSE 67; RESP 18; O2SAT 98
[2024-06-28] MEDS: NITROGLYCERIN 0.4MG SL TABLET SL (09:47)
[2024-06-28 09:49] VITALS: BP 94/51; PULSE 60; RESP 18; O2SAT 98
[2024-06-28 09:55] VITALS: BP 95/60; PULSE 58; RESP 17; O2SAT 99
--- NOTE | 2024-06-28 10:00 | CT_ITS ---
APPROVED REPORT Resource Technician: CLINICAL INDICATION Chest Pain TECHNIQUE Image Acquisition: A 128 slice MDCT scanner ([employer] View) was used for data acquisition. A noncontrast coronary calcium scan was performed. A CT attenuation threshold of 130 Hounsfield units (HU) was used for the detection of calcium in contiguous voxels of 1 sq mm in area to be counted as individual lesions. Bolus tracking in the ascending aorta with a threshold of 180 HU was performed. Immediately afterwards, ECG synchronized cardiac CT was then performed from the cardiac base to apex using retrospective gating with ECG tube current modulation. A total of 85 mL of Isovue 370 mg/mL contrast medium was administered at 5 mL/sec followed by a saline flush using a biphasic injection protocol. A tube voltage of 120 KVp was used. The patient received the following medications prior to the cardiac CT. 0.4 mg of sublingual nitroglycerin The average heart rate at the time of acquisition was 61 bpm and regular. Image Reconstruction Transaxial images were reconstructed at 0.67 mm slide thickness. Data was reviewed interactively on an advanced workstation capable of 2 and 3-dimensional displays in all conventional reconstruction formats, including multiplanar reformations, maximum intensity projections, curved multiplanar reformations, and volume rendered reconstructions. When applicable, selected routine images describing the relevant coronary anatomy and pathology were saved and sent to PACS. Complications None Technical Quality Overall image quality was good. Coronary artery opacification was adequate. Total DLP (Dose-Length Product) is 1912.3 mGy-cm. The reported value represents the total of one or more individual components during the CT acquisition of this date and at this time, and as such, the same value may appear in more than one CT report depending on the interpreting/reporting physicians. COMPARISON None FINDINGS CT Coronary Calcium Scoring LMA (Left Main Artery) = 0 LAD (Left Anterior Descending) = 0 LCX (Left Coronary Circumflex) = 0 RCA (Right Coronary Artery) = 0 Total Calcium Score = 0 using the AJ-130 method. The interpretation of the calcium heart score is based on the following continuum*: 0 = no calcified plaque detected (risk of coronary artery disease is very low ??? less than 5%) 1-10 = calcium detected in extremely minimal levels (risk of coronary diseases is still low ??? less than 10%) 11-100 = mild levels of plaque detected with certainty (mild or minimal narrowing of heart arteries is likely) 101-400 = definite,at least moderate levels of plaque detected (relatively high risk of a heart attack within 3-5 years) >401-999 = extensive levels of plaque detected (high risk of heart attack, high levels of vascular disease are present, high likelihood of at least one significant coronary narrowing) *The calcium heart score quantifies the burden of coronary calcification/plaque in the coronary arteries. The calcium heart score is not able to evaluate the presence or burden of non-calcified (i.e. soft) plaque. There is no identifiable calcification in the aortic valve, mitral annulus or mitral valve, pericardium, or myocardium. Coronary CT Angiography The coronary arterial system is right dominant. Quantitative Stenosis Grading: Left Main (LM): The left main originates normally from the left sinus of Valsalva. The LM bifurcates into the left anterior descending artery and left circumflex artery. The LM is patent with no evidence of atherosclerosis. Left Anterior Descending (LAD) and Diagonal Branches: The LAD gives off 2 diagonal branch(es). The LAD and its branches are patent with no evidence of atherosclerosis. There is no evidence of LAD-myocardial bridge. Left Circumflex (LCX) and Obtuse Marginals (OM): The LCX gives off 1 Obtuse Marginal (OM) branch(es). The LCX and its branches are patent with no evidence of atherosclerosis. Right Coronary Artery (RCA): The RCA originates normally from the right sinus of Valsalva. The RCA gives off a posterior descending artery (PDA) and posterolateral (PL) branches. The RCA and its branches are patent with no evidence of atherosclerosis. Non-Coronary Cardiac Findings: Analysis of the left ventricular (LV) structure and function was performed after 3-D reconstruction of the LV from axial images, with user-corrected automatic contouring for assessment of LV volumes and user-defined reconstruction from oblique planes for measurement of 3-D cardiac structure and function. -The left ventricle systolic function is normal. -There is no left atrial appendage filling defect. Two right pulmonary veins and two left pulmonary veins drain normally into the left atrium. -No pericardial thickening or calcification. -Central and branch pulmonary arteries in the [id number] are unremarkable. -Thoracic aorta within the visualized thoracic aortic-branches in the [id number]-[id number] is unremarkable. Extracardiac Structures No significant extra-cardiac findings. Note, however, that this study is focused on the cardiac findings. IMPRESSION -Absence of coronary calcification with an Agatston score = 0 using the AJ-130 method. -No evidence of significant flow-limiting atherosclerosis of the coronary arteries. -No evidence of myocardial bridges or coronary anomalies. -CAD-RADS 0. Management recommendations per ACC/AHA guidelines*, as clinically appropriate. *Recommendations: CAD RADS 0: Reassurance. Consider non-atherosclerotic causes of chest pain. CAD RADS 1: Consider non-atherosclerotic causes of chest pain. Consider preventive therapy and risk factor modification. CAD RADS 2: Consider non-atherosclerotic causes of chest pain. Consider preventive therapy and risk factor modification, particularly for patients with nonobstructive plaque in multiple segments. CAD RADS 3: Consider further functional testing. Consider symptom-guided anti-ischemic and preventive pharmacotherapy as well as risk factor modification per published guideline statements. CAD RADS 4A: Consider further functional testing or invasive coronary angiography with revascularization per published guideline statements. Consider symptom-guided anti-ischemic and preventive pharmacotherapy as well as risk factor modification per published guideline statements. CAD RADS 4B: Invasive coronary angiography recommended with revascularization per published guideline statements. Consider symptom-guided anti-ischemic and preventive pharmacotherapy as well as risk factor modification per published guideline statements. CAD RADS 5: Consider invasive angiography and/or viability assessment with revascularization per published guideline statements. Consider symptom-guided anti-ischemic and preventive pharmacotherapy as well as risk factor modification per published guideline statements. CRITICAL RESULT None COMMUNICATION Per this written report The coronary and cardiac findings of this CCTA were reviewed, reported, and signed by Vijay Gonzalez MD (Bottom Buffer) Conclusion Electronically signed by : Lori Gonzalez MD 06/29/2024 11:53:41
[2024-06-28] MEDS: SODIUM CHLORIDE 0.9% 10ML SYR (RAD ONLY) 10 ML IV (10:02)
[2024-06-28] MEDS: IOPAMIDOL-370 (76%);100ML BOTTLE 85 ML IV (10:02)
[2024-06-28] MEDS: 0.9 % SODIUM CHLORIDE 50 ML VIAL IV (10:02)
== END 2024-06-28 10:14 | disposition home or self-care (01) ==
PROVIDERS: PCP Nurse Practitioner Family; Visit Provider Physician Assistant
DX: R94.31 Abnormal electrocardiogram [ECG] [EKG] (principal); Z82.49 Family history of ischemic heart disease and other diseases of the circulatory system; R53.83 Other fatigue; I47.29 Other ventricular tachycardia; R55 Syncope and collapse; R07.9 Chest pain, unspecified
CPT/HCPCS: 75574; 80048; Q9967

== ENCOUNTER 2024-07-28 15:12 | Outpatient (CLI) | payer MEDICARE, SELFPAY ==
--- OUTSIDE RECORDS SUMMARY | 2024-07-28 15:14 | XMS_ITS | Clinical Summary ---
Author Organization [facility] Address [address] [place], [place] [address] Phone Care Team Providers Care Neurological Surgeon Name Role Phone Franck Dos Santos MD Unavailable [phone] Allergies Active Allergy Reactions Criticality Noted Date Comments Versed Anxiety Medium 12/10/2019 Per patient made her more anxious and agitated. Patient said she was ok with Ativan. Medications * This document contains information received from the source organization and may not represent a complete record from that organization. citalopram (CELEXA) 20 mg Oral TabletIndications:M oderate episode of recurrent major depressive disorder (HCC) Take 1 Tablet by mouth daily. 90 Tablet 1 3 Active DULoxetine (CYMBALTA) 60 mg Oral Capsule, Delayed Release(E.C.)Indica tions:Moderate episode of recurrent major depressive disorder (HCC),Fibromyalgia, PTSD (post-traumatic stress disorder),Depressio n with anxiety Take 1 Capsule by mouth 2 times daily. 180 Capsule 1 3 Active LEVOthyroxine (EUTHYROX) 125 mcg Oral TabletIndications:A cquired hypothyroidism Take 1 Tablet by mouth daily. 90 Tablet 3 Active traZODone (DESYREL) 50 mg Oral TabletIndications:P rimary insomnia TAKE 1 & 1/2 TO 2 (ONE & ONE-HALF TO TWO) TABLETS BY MOUTH EVERY DAY AT BEDTIME prn sleep 180 Tablet 1 3 Active diclofenac sodium (VOLTAREN) 50 mg Oral Tablet, Delayed Release (E.C.)Indications:A rthralgia, unspecified joint Take 1 Tablet by mouth 2 times daily with meals as needed for Pain. 180 Tablet 1 3 Active Active Problems Patient Care Coordination No te Formatting of this note migh t be different from the original. Arsen 12/20/13 UDS 7--14 CSTA 03/04/13 Danni Ari 03/04/13 SOAP 05/27/13 Problem Noted Date Diagnosed Date Cellulitis and abscess of foot, except toes 05/19 Right foot pain 11/24/2019 Overview (11/24/2019): Added automatically from request for surgery [id number] Hallux rigidus of left foot 11/20/2018 Overview (11/20/2018): Added automatically from request for surgery [id number] Hallux rigidus of right foot 05/24/2018 Overview (05/24/2018): Added automatically from request for surgery [id number] Moderate episode of recurrent major depressive d isorder 10/29/2017 Assessment & Plan (03/04/2022 2:29 PM EST): Doing well on current medications. Assessment & Plan (09/06/2021 3:54 PM EDT): Doing well and no longer seeing specialists Assessment & Plan (04/14/2020 3:11 PM EST): More depression since its been winter Assessment & Plan (04/08/2019 9:48 AM EST): Stable on meds Assessment & Plan (08/24/2018 11:42 AM EDT): Stable and doing well. Assessment & Plan (10/29/2017 9:36 AM EDT): Stable on meds Post-traumatic osteoarthritis of hips, bilateral 08/25/2017 Post-traumatic osteoarthritis of both knees 10/2017 Cyst of left ovary 03/14/2015 Enlarged uterus 03/14/2015 DUB (dysfunctional uterine bleeding) 03/06/2015 Family history of uterine cancer 03/06/2015 Primary insomnia 12/29/2014 Assessment & Plan (03/04/2022 1:35 PM EST): Doing well on trazodone Assessment & Plan (09/06/2021 3:54 PM EDT): Doing well on trazodone Assessment & Plan (08/24/2018 11:43 AM EDT): Doing well. Depression with anxiety 09/28/2014 Assessment & Plan (03/04/2022 1:36 PM EST): Doing well on Cymbalta and Celexa Assessment & Plan (09/06/2021 3:52 PM EDT): Doing well No longer seeing specialist Assessment & Plan (08/24/2018 11:43 AM EDT): Stable and doing well. Assessment & Plan (10/04/2016 2:26 PM EDT): Stable no issues Fibromyalgia 09/08/2014 Assessment & Plan (03/04/2022 1:36 PM EST): Doing well presently Assessment & Plan (09/06/2021 3:53 PM EDT): Doing well and no longer needig any controlleds Assessment & Plan (08/24/2018 11:43 AM EDT): Doing well. No longer on gabapentin. Hypothyroid 12/14/2013 Assessment & Plan (03/04/2022 1:35 PM EST): Clinically doing well Assessment & Plan (09/06/2021 3:53 PM EDT): Doing well clinically Assessment & Plan (08/24/2018 11:42 AM EDT): Doing well clinically PTSD (post-traumatic stress disorder) 10/09/2011 Assessment & Plan (03/04/2022 2:29 PM EST): Stable, doing well Assessment & Plan (09/06/2021 3:54 PM EDT): Doing well No longer seeing specialist Assessment & Plan (08/24/2018 11:42 AM EDT): Controlled without problems. Arthralgia 10/09/2011 Assessment & Plan (03/04/2022 1:37 PM EST): No longer well controlled on diclofenac May be because of cold weather. Assessment & Plan (09/06/2021 3:52 PM EDT): Generally well controlled on Diclofenac Exacerbated currently in extremes of temperature Tobacco dependence 04/02/2011 Excess body and facial hair 04/02/2011 Pelvic pain in female Resolved Problems Problem Noted Date Diagnosed Date Resolved Date Infected hardware in right leg 06/09/2020 09/06/2021 Acute osteomyelitis of right ankle or foot 06/09/2020 09/06/2021 Mechanical complication inte rnal fixation device like nail, plate, martinez 06/09/2020 09/06/2021 Pelvic pain affecting 03/14/2015 03/14/2015 Excessive vaginal bleeding 03/14/2015 0 08/25/2017 Immunizations Immunization Administration Dates Next Due Hepatitis A, Adult 11/15/2017 Influenza Vaccine Quadrivalent PF 11/23/2019,11/2014 Influenza Vaccine Trivalent Adjuvanted PF 2018 Influenza Virus Vaccine Quadrivalant, Flublok Moderna SARS-CoV-2 Booster V accine 18+ Yrs (Light Blue Border) 01/02/2021 Moderna SARS-CoV-2 Vaccine 12+ Yrs (Light blue b order) 06/21/2020,05/24/2020 PPD Test 05/02/2020 Pneumococcal Conjugate Vaccine 20 Valent 022 Pneumococcal Polysaccharide 23 Valent 08/25/2017 Tdap 05/26/2017,07/15/2010 Surgical History Surgery Date Site/Laterality Comments TUBAL LIGATION 02/17/1995 - 02/17/1996 CERVICAL POLYP REMOVAL 10' HYSTERECTOMY 03/14/2015 Bilateral ROBOTIC ASSISTED LAPAROSCOPIC TOTAL HYSTERECTOMY WITH BILATERAL SALPINGO-OOPHORECTOMY ; Surgeon: Marlin Colon MD; Location: [facility] OR; Service: Gynecology TOE FUSION 12/25/2018 Foot/Left First Metatarsalphalangeal joint of the left foot.; Surgeon: Shayan Farmer DPM; Location: [facility]; Service: Podiatry Medical devices from this surgery are in the Medical Devices section. KNEE SURGERY Left KNEE SURGERY Right TOTAL KNEE ARTHROPLASTY Right TOE FUSION 12/10/2019 Right First metatarsophalangeal joint fusion of right foot.; Surgeon: Shayan Farmer DPM; Location: [facility]; Service: Podiatry Medical devices from this surgery are in the Medical Devices section. FOOT SURGERY 06/09/2020 Right RIGHT FOOT INCISION AND DRAINAGE/DEBRIDEMENTM WITH REMOVAL OF HARDWARE; Surgeon: Shayan Farmer DPM; Location: [facility] MA[facility] OR; Service: Podiatry Medical devices from this surgery are in the Medical Devices section. FOOT SURGERY 06/09/2020 Surgeon: Shayan Farmer DPM; Location: [facility] OR; Service: Podiatry Medical devices from this surgery are in the Medical Devices section. IR PICC INSERTION EQUAL OR > 5 YEARS 06/22/2020 IR PICC INSERTION EQUAL OR > 5 YEARS 06/22/2020 Enma Rosario PA-C [facility] IR Medical History Medical History Date Comments MRSA (methicillin resistant staph aureus) culture positive 04' Abnormal glandular Papanicolaou smear of cervix Arthritis in her knees & h ips Hypothyroid PTSD (post-traumatic stress disorder) Generalized anxiety disorder Fibromyalgia 09/08/2014 Depression with anxiety 09/28/2014 Primary insomnia 12/29/2014 DUB (dysfunctional uterine bleeding) 03/06/2015 Cyst of left ovary 03/14/2015 Post-traumatic osteoarthritis of hips, bilateral 08/25/2017 Post-traumatic osteoarthritis of both knees 2017 Depression Neuromuscular disorder (HCC) fib romyalgia Family History Medical History Relation Name Comments Thyroid Disease Daughter 1 Arthritis Father High Cholesterol Father Diabetes Maternal Grandfather Kidney Disease Maternal Grandfather Heart Attack Maternal Grandmother Rheum Arthritis Maternal Grandmother Depression Mother Mental Illness Mother Miscarriages / Stillbirths Mother Heart Disease Paternal Grandmother High Blood Pressure Paternal Grandmother High Cholesterol Paternal Grandmother Stroke Paternal Grandmother Relation Name Status Comments Daughter 1 Alive Daughter 2 Alive Father Maternal Grandfather Maternal Grandmother Alive Mother Paternal Grandfather Paternal Grandmother Sister Alive Son 1 Alive Son 2 Alive Social History Tobacco Use Types Packs/Day Years Used Date Smoking Tobacco: Every Day Cigarettes 1 35.4 Started: 02/17/1989 Smokeless Tobacco: Never Tobacco Cessation:Ready to Q uit: Not Asked; Counseling Given: Not Answered Alcohol Use Standard Drinks/Week Comments No 0 (1 standard drink = 0.6 oz pur e alcohol) PHQ-2 Answer Date Recorded PHQ-2 Total Score 0 09/06/2021 Sexually Active Control Partners Comments Yes Male Comments No Sex and Gender Information Value Date Recorded Sex Assigned at Not on file Legal Sex Female 3:41 AM EDT Gender Identity Not on file Sexual Orientation Not on file Obstetrics History Para Term AB IAB SAB Ectopic Multiple Livin g Live Births 5 3 2 1 1 4 2 Date Outcome GA Total Labor Labor/2nd/3rd Weight Sex Type Anes PTL Brittany A1 A5 Name Clin Term Term 011 36w 0d 0h 01m 5 lb 5.5 oz (2.424 kg) F Vag-S pont None Living 7 9 BIRTC H,MUKUND NNA BABY A Sam rAngelo J Delivery Location:[facility] 011 36w 0d 0h 01m 4 lb 15.4 oz (2.251 kg) M Vag-S pont None Living 7 7 BIRTC H,MUKUND NNA BABY B Sam rAngelo J Delivery Location:[facility] Last Filed Vital Signs Vital Sign Reading Time Taken Comments Blood Pressure 118/72 03/04/2022 1:25 PM EST Pulse 85 03/04/2022 1:25 PM EST Temperature 36.2 C (97.2 F) 03/04/2022 1:25 PM EST Respiratory Rate 16 12/31/2020 1:13 PM EST Oxygen Saturation 97% 03/04/2022 1:25 PM EST Inhaled Oxygen Concentration - - Weight 84.3 kg (185 lb 12.8 oz) 03/04/2022 1:25 PM EST Height 165.1 cm (5' 5 ) 03/04/2022 1:25 PM EST Body Mass Index 30.92 03/04/2022 1:25 PM EST Plan of Treatment Health Maintenance Due Date Last Done Comments Hepatitis B Vaccine (1 of 3 - 19+ 3-dose series) 1992 Breast Cancer Screening 02/03/2016 02/02/2014 Cologuard 2018 Colon Cancer Screening 2018 Colonoscopy 2018 FIT 2018 Sigmoidoscopy 2018 Virtual Colonography 2018 Annual Wellness Exam 09/06/2022 09/06/2021, 08/25/2017, 12/29/2014 (Postponed) Low Dose Lung Cancer Screening 05/21/2023 Zoster (1 of 2) 05/21/2023 COVID-19 Vaccine ( season) 2023 01/02/2021, 06/21/2020, 05/24/2020 Influenza Vaccine (Season Ended) 2024 11/04/2020, 11/23/2019, 11/19/2018, Additional history exists DTaP/TDaP/Td (7 - Td or Tdap) 05/27/2027 05/26/2017, 07/15/2010, 11/09/1975, Additional history exists Pneumococcal Vaccine 50+ Completed 09/06/2021, 10/2017 Meningococcal B Vaccine Aged Out No l onger eligible based on patient's age to complete this topic Goals Goal Patient Goal Type Associated Problems Recent Progress Patient-Stated? Author Maintain a healthy diet, exercise regularly and maintain an ideal body weight General No Rachuba, Nettie Cielo, RMA Stay Tobacco Free Lifestyle No Rachuba, Nettie Cielo, RMA Medical Devices Implanted Type Area Wine Blender Device Identifier Shelf Expiration Date Model / Serial / Lot Screws Bilat Knees Plate Ti 2.4/2.7mm Sm Va 0deg Lcp First Left Mtp Fn Bn Ns - [id number] Implanted:Qty: 1 on 12/25/2018 by Shayan Farmer DPM at [facility] Left: Foot SYNTHES-STRATE:eFlix .231 / / Screw Locking Self Tapping Star [address] Recess 20mm - [id number] Implanted:Qty: 4 on 12/25/2018 by Shayan Farmer DPM at [facility] Left: Foot SYNTHES-STRATEC:eFlix .020 / / Screw Locking Self Tapping Stardrive Recess 18mm - [id number] Implanted:Qty: 1 on 12/25/2018 by Shayan Farmer DPM at [facility] Left: Foot SYNTHES-STRATEC:eFlix .018 / / Screw 2.7mm Ti Cortex Stardrive Recess 18mm - [id number] Implanted:Qty: 1 on 12/25/2018 by Shayan Farmer DPM at [facility] Left: Foot SYNTHES-STRATEC:[email or web address] [facility] 402.878 / / Screw Locking Self Tapping Stardrive Recess 18mm - [id number] Implanted:Qty: 2 on 12/10/2019 by Shayan Farmer DPM at [facility] Right: Toe SYNTHES-STRATEC:eFlix .018 / / Screw Locking Self Tapping [address] Recess 20mm - [id number] Implanted:Qty: 1 on 12/10/2019 by Shayan Farmer DPM at [facility] Right: Toe SYNTHES-STRATEC:eFlix .020 / / Plate Ti 2.4/2.7mm Sm Va 0deg Lcp First Right Mtp Fn Bn Ns - Implanted:Qty: 1 on 12/10/2019 by Shayan Farmer DPM at [facility] Right: Toe SYNTHES-STRATEC:eFlix .230 / / Screw 2.7mm Ti Cortex Stardrive Recess 14mm - [id number] Implanted:Qty: 1 on 12/10/2019 by Shayan Farmer DPM at [facility] Right: Toe SYNTHES-STRATEC:[email or web address] [facility] 402.874 / / Screw Self Tapping Locking Stardrive Recess 16mm - [id number] Implanted:Qty: 1 on 12/10/2019 by Shayan Farmer DPM at [facility] Right: Toe SYNTHES-STRATEC:[employer] [facility] 04.211.016 / / Screw 2.7mm Ti Cortex Stardrive Recess 20mm - [id number] Implanted:Qty: 1 on 12/10/2019 by Shayan Farmer DPM at [facility] Right: Toe SYNTHES-STRATEC:[employer] [facility] 402.880 / / Kt Graft 5ml Pst 12ml Bead Stimuln Calcm Slpht Matrx Inj Rpd - [id number] Implanted:Qty: 1 on 06/09/2020 by Shayan Farmer DPM at [facility] [employer] 01/16/2022 620-005 / / [id number] Procedures Procedure Name Priority Date/Time Associated Diagnosis Comments MM MAMMO DIGITAL DIAGNOSTIC W CAD BILAT Routine 02/02/2014 8:44 AM EST Breast pain, right from Last 3 Months or Most Recently Relevant to Health Maintenance Results * MM MAMMO DIGITAL DIAGNOSTIC W CAD BILAT (02/02/2014 8:44 AM EST) Anatomical Region Laterality Modality Breast Bilateral Mammography 02/02/2014 10:5 9 AM EST Impressions 02/02/2014 1:15 PM EST : Incomplete-need additional imaging evaluation ([id number]) ~ Unremarkable mammogram. Breast ultrasound will be obtained to evaluate the area of pain on the right. ~ RECOMMENDATION: Ultrasound of the right breast. ~ , this ultrasound examination was performed on 02-02-14 and will be reported separately. ~ * The patient with a palpable abnormality, unexplained by breast imaging, should be managed on clinical basis by the attending physician. * Breast imaging has a false negative rate of 15%. * The patient was notified by mail of the results of this examination. *The patient's information was entered into a reminder system with a target due date for the next mammogram. The mammogram was reviewed by a Radiologist and CAD. Narrative 02/02/2014 1:15 PM EST Procedure:MM MAMMO DIGITAL DIAGNOSTIC W CAD BILAT ~ Reason for exam: clinical finding. Indicated problem(s): pain in the right breast. ~ MM MAMMO DIGITAL DIAG CAD BILAT Bilateral CC and MLO view(s) were taken. DIAGNOSTIC MAMMOGRAM BOTH BREAST, 02-02-14: ~ Indication; Pain, upper outer quadrant of right breast. No priors. ~ There are scattered fibroglandular densities. ~ No dominant mass or suspicious calcification identified. ~ No focal mammographic abnormality is seen at the level of the patient's pain on the right. ~ Brittney Cedeno PA-C IMG MAMMOGRAPHY ORDERABLES Final Result from Last 3 Months or Most Recently Relevant to Health Maintenance Advance Directives For more information, please contact: [phone] * Full Code (Latest Code Status on File) Date Activated Date Inactivated Comments 06/09/2020 11:27 AM 06/10/2020 1:44 AM * Full Code Date Activated Date Inactivated Comments 03/14/2015 4:40 PM 03/15/2015 12:34 PM Care Teams Neurological Surgeon Relationship Specialty Start Date End Date Franck Dos Santos MD [address] [place] [address] Physician Internal Medicine-Rheumatology 09/04/16
[2024-07-28 17:03] LABS: Anion Gap 9.9 mEq/L (5-15); Blood Urea Nitrogen 13 mg/dl (7-17); Calcium 9.3 mg/dl (8.4-10.2); Carbon Dioxide 23 mmol/L (22.0-30.0); Chloride 108 mmol/L (98-107); Estimated Glomerular Filt Rate 52 ml/min (>60); GFR (African American) 63 ML/MIN (>60); Glucose 81 mg/dl (74-100); Potassium 3.9 mmoL/L (3.5-5.1); Sodium 137 mmol/L (136-145)
[2024-07-30 21:14] LABS: QuantiFERON-TB Gold Plus Negative (Negative)
== END 2024-07-28 23:59 | disposition home or self-care (01) ==
LOC: LAB 15:12
PROVIDERS: Physician Assistant; PCP Nurse Practitioner Family; Visit Provider Nurse Practitioner Family
DX: Z11.1 Encounter for screening for respiratory tuberculosis (principal); R53.83 Other fatigue; I47.29 Other ventricular tachycardia; R94.31 Abnormal electrocardiogram [ECG] [EKG]; Z82.49 Family history of ischemic heart disease and other diseases of the circulatory system
CPT/HCPCS: 36415; 80048; 86480